=== PATIENT | male | born 1965 | race Caucasian/White ===

== ENCOUNTER 2016-10-11 06:34 | Emergency (ER) | payer BC ==
[2016-10-11 06:43] VITALS: BP 136/83
[2016-10-11] MEDS ORDERED: DIPHTH,PERTUSS(ACELL),TET VAC 0.5 ML VIAL IM ONE ×2 (06:57→07:05)
--- OUTSIDE RECORDS SUMMARY | 2016-10-11 06:57 | XMS REPORT | Continuity of Care Document ---
:1965 Author Organization [facility] ([facility]) Address [address] [place] [address] Phone [phone] Care Team Providers Name Role Phone Bruno Omer Primary Care Provider [phone] Source Comments This disclosure is being made pursuant to the Care Everywhere program, applicable federal and state laws, and may not contain all informaitonavailable regarding this patient.[facility] ([facility]) Active Allergies and Adverse Reactions No Active Allergies Current Medications Not on file Active Problems Not on file Social History Tobacco Use Types Packs/Day Years Used Date Never Assessed Last Filed Vital Signs Vital Sign Reading Time Taken Blood Pressure 120/68 01/12/2007 1:24 PM CDT Pulse 73 01/12/2007 1:24 PM CDT Temperature - - Respiratory Rate - - Height 1.67 m (5' 5.74") 01/12/2007 1:24 PM CDT Weight 84.8 kg (186 lb 15.2 oz) 01/12/2007 1:24 PM CDT Body Mass Index 30.41 01/12/2007 1:24 PM CDT Oxygen Saturation - - Plan of Care Health Maintenance Due Date Last Done Comments HCV Screening 1965 Hepatitis B Vaccine (1 of 3 - Primary Series) 1965 Tdap Vaccine 09/20/1974 Lipid Disorder Screening 09/20/1981 MMR Vaccine 09/20/1981 Td Vaccine 09/20/1981 Colonoscopy 09/20/2013 Prostate Cancer Screening 09/20/2013 Influenza Vaccine: Seasonal (#1) 12/28/2015 Results from Last 3 Months Not on file
--- NOTE | 2016-10-11 06:58 | ERNOTE ---
Medical Problem HPI - General Chief Complaint: Laceration Time Seen by Provider: 10/11/16 06:49 Source: patient Exam Limitations: no limitations - Immun/Allergies/Home Medications Immunizations: IMMUNIZATION HX Immunizations Up to Date Yes History of Influenza Vaccine No Hx Pneumococcal Vaccination No Allergies/Adverse Reactions: Allergies No Known Allergies Allergy (Verified 10/11/16 06:44) Home Medications: HOME MEDICATIONS Lansoprazole [Prevacid] 30 mg PO DAILY 10/11/16 [Last Taken Unknown] - History of Present History Narrative: pt bumped his lip on a hard surface and has an abrasion on mid upper lip.this happened at home at 0500 today Review of Systems - Review of Systems Constitutional: Present: no symptoms reported EYE: Present: no symptoms reported ENT: Present: See HPI Respiratory: Present: no symptoms reported Cardiology: Present: no symptoms reported Gastrointestinal/Abdominal: Present: no symptoms reported - Patient's Past Medical History Patient History - Medical: Depression, GERD Patient History - Cardiac/Respiratory: No pertinent hx Patient History - Cancer: No Hx of Cancer Patient History - Surgical Procedures: No surgical history Patient History - Other: None - Social History Living Situations: home Abuse History: No History of abuse Psych History: Hx of Depression Smoking Status: Never smoker Have you smoked in the past 12 months: No Alcohol Use: rarely Drug Use: none - Immunizations Immunizations Up to Date: Yes Hx Pneumococcal Vaccination: No History of Influenza Vaccine: No Physical Exam - Physical Exam General Appearance: Present: wd/wn, alert, no apparent distress Ears, Nose, Throat: Present: other - pt has a 0.8 cm linear deep abrasion to mid upper lip. I am unable to spread the edged of the abrasion. He also has contusion of the inner aspect of lower lip on the inside. Respiratory: Present: no respiratory distress, normal breath sounds, no accessory muscle use, chest nontender, lungs clear Cardiovascular/Chest: Present: regular rate, rhythm, no murmur ED Progress - Vital Signs Patient's Vital Signs:: I have reviewed the patient's vital signs. Vital Signs: Vital Signs 10/11/16 06:39 Temperature 36.2 C L Pulse Rate 95 Respiratory 16 Rate Blood Pressure 136/83 O2 Sat by Pulse 96 Oximetry - Progress/Reassessment Chief Complaint: Laceration Plan - Plan Plan: patient's injury is not the type to take sutures. it is closed. Steri strips applied and pt did well. Tdap will be given Departure - Departure Clinical Impression: Abrasion of lip Qualifiers: Encounter type: initial encounter Qualified Code(s): S00.511A - Abrasion of lip , initial encounter Condition: Good Instructions: Abrasion, [id number] Additional Instructions: follow up with your PCP in 48 hours for wound check then follow up as they advise. Do not get area wet or moist till seen by PCP. Referrals: Bruno Omer MD [Primary Care Provider] -
== END 2016-10-11 07:12 | disposition home or self-care (01) ==
LOC: ER 06:34
DX: S00.511A Abrasion of lip, initial encounter (principal); K21.9 Gastro-esophageal reflux disease without esophagitis; Z23 Encounter for immunization; W45.8XXA Other foreign body or object entering through skin, initial encounter; W22.8XXA Striking against or struck by other objects, initial encounter; Y93.9 Activity, unspecified; Y92.009 Unspecified place in unspecified non-institutional (private) residence as the place of occurrence of the external cause